=== PATIENT | male | born 1945 | race Caucasian/White ===

== ENCOUNTER → 2020-02-27 10:06 | Outpatient (BNVA) | payer OTHER, SELFPAY | PROVIDERS: PCP Internal Medicine; Visit Provider Hospitalist | DX: Z76.89 Persons encountering health services in other specified circumstances (principal) ==

== ENCOUNTER 2020-10-03 09:46 | Outpatient (REF) | payer OTHER, SELFPAY ==
--- NOTE | 2020-10-03 11:02 | PFT_ITS ---
INDICATION: COPD. SPIROMETRY: The FEV1 to FVC of 72%. He had an FEV1 of 3.18 L which is 93% predicted, an FVC of 4.42 L which is 95% predicted. No significant response to bronchodilators noted. Maximum voluntary ventilation 83% predicted. LUNG VOLUMES: Total lung capacity 94% predicted. DIFFUSION CAPACITY: DLCO 94% predicted. The flow volume loop appears to show a concavity during the expiratory limb suggesting an obstructive physiology. INTERPRETATION: There appears to be a mild obstructive ventilatory defect consistent with mild COPD. No significant response to bronchodilators noted. Normal maximum voluntary ventilation. Lung volumes and diffusion capacity within normal limits. Clinical correlation warranted. MD FERMÍN Ewing/MODFaby / [id number]
== END 2020-10-03 09:47 | disposition home or self-care (01) ==
LOC: HO.RESP 09:46
PROVIDERS: PCP Internal Medicine; Visit Provider Hospitalist
DX: J45.40 Moderate persistent asthma, uncomplicated (principal)
CPT/HCPCS: 94060; 94727; 94729

== ENCOUNTER → 2020-10-11 09:50 | Outpatient (BNVA) | payer OTHER, SELFPAY | PROVIDERS: PCP Internal Medicine; Visit Provider Hospitalist ==

== ENCOUNTER 2021-09-20 10:53 | Outpatient (REF) | payer OTHER, SELFPAY ==
--- NOTE | 2021-09-20 09:53 | PFT_ITS ---
Forced vital capacity 85%, FEV1 86%, FEV1/FVC ratio 73. NTV68-25 84% and MVV is 75%. Post bronchodilator therapy, there is a slight improvement in FVC and [id number]. Total lung capacity 88%. Residual volume is 102%. Diffusion capacity 87%. CONCLUSION: Normal pulmonary function test. However, his significant response to bronchodilator therapy indicates that the patient may have bronchospastic disorder involving smaller airways. For this, clinical correlation is recommended. Compared to the results of study on 10/03/2020, there is no significant change except for the fact that the response to bronchodilator therapy is more pronounced on this present study. Danita Gilbert MD MSLemuel/MODL / [id number]
== END 2021-09-20 10:54 | disposition home or self-care (01) ==
LOC: HO.RESP 10:53
PROVIDERS: PCP Internal Medicine; Visit Provider Hospitalist
DX: J45.40 Moderate persistent asthma, uncomplicated (principal)
CPT/HCPCS: 94060; 94727; 94729

== ENCOUNTER 2022-10-07 14:06 | Outpatient (AMB) | payer OTHER, SELFPAY ==
--- NOTE | 2022-10-07 14:29 | A.OFFVIS_ITS ---
Intake Vital Signs 10/07/22 14:31 Height 6 ft Weight 200 lb BMI 27.1 BP 130/78 Blood Pressure Location Lt brachial Position Sitting Pulse 70 Pulse Source Pulse Oximeter Pulse Oximetry (%) 96 Oxygen Delivery Method Room Air Intake Visit Reasons: COPD [employer] Required: No Allergies No Known Allergies Allergy (Verified 10/07/22 14:29) HPI HPI Comments History of Present Illness Details The patient is a 77 y/o gentleman known lifelong asthma. He has also has a history of nasal polyposis with multiple surgeries both here and [place]. He has been on multiple inhalers without any significant improvement. Baseline he does have some wheezing. However sometimes he has exacerbations at least 2 to 3 times a year where he has worsening respiratory symptoms for several months afterwards. Usually has to go on antibiotics and prednisone. Currently he does not have a nebulizer. He does have some wheezing on examination. Therefore, he did have a bronchodilator in a pre and post spirometry demonstrating some evidence response to bronchodilators, but, no obstruction at least on spirometry. The patient has been on allergy shots in the past. He had an for about 20 years without any significant improvement. He does have significant asthma and likely allergic phenotype. Will test his blood work at to assess his eosinophils and also his IgE levels among others. He may be a good candidate for biologic specially since he has failed respiratory therapy. In the meantime will start him on a nebulizer with budesonide and albuterol. Could consider using a long-acting beta agonist in the future. 09/27/2019 The patient is here for pulmonary follow-up visit. He continues to have significant wheezing from his severe persistent asthma. He also had difficulty breathing due to his nasal polyposis. We are to increase inhaled cortical steroids because of persistent wheezing. After adding budesonide and more nebulized treatments he has been able to exercise a little better. However still having significant wheezing on examination. He has also been on steroids. At this point we did do his blood work demonstrating significant allergies and also an elevated IgE level. He also has nasal polyposis and also eczema. He is failing outpatient therapy with respiratory medicines. He needs to be placed on biologics. We did talk about different options, but Dupixent would be the better option. I believe Dupixent will be able to treat the patient's nasal polyposis is eczema and significant allergic uncontrolled asthma. 02/27/2020 the patient is here for pulmonary follow-up visit. Overall he is doing significantly better. The Dupixent injections have been very helpful. His nasal polyposis and postnasal drip from improved and he can breathe better through his nose. Also his asthma has been much improved. He has not required his nebulized therapy. He has not required any prednisone. He does continue with his current maintenance therapy. We did again looked at his spirometry that he had back over the summer demonstrating no evidence of obstruction consistent with his reversible obstructive airway disease. Will plan to have him come back in the end of the summer with pulmonary function studies and a chest x-ray unless he has worsening respiratory symptom began evaluate at earlier time. 10/07/2022 the patient is here for a pulmonary follow-up visit. Overall the patient is doing significantly better. Feels like every day he is getting better. His breathing is a lot better. He continues on the Dupixent. Denies any allergic reactions to the Dupixent. Feels like the nasal polyposis and the eczema also have improved along with the asthma. The patient has not required any prednisone or any rescue therapy to treat his asthma. Denies any conjunctivitis or any local reaction to the Dupixent injection. At this point is very important for him to continue the Dupixent as it is helping his eczema, nasal polyps and also severe asthma. I am hopeful that well on the Dupixent his airways will continue healing to the point that they can hopefully normalized. He did undergo pulmonary function studies and we did review the results. it appears that he is no longer obstructed demonstrating already improvement in his overall respiratory capacity. He continues to be active on a regular basis. The goal will be to continue the biologic therapy since he has responded so well to the therapy. No plans for discontinuation of the Dupixent at this time. Follow-up in a year's time. [facility] Medical History (Updated 02/27/20 @ 12:45 by Esteban Rosado MD) Asthma Eczema Nasal polyps Social History (Updated 10/11/20 @ 10:06 by WHIT Alcantara) Patient Tobacco Use Status: Never used Tobacco Review of Systems Const Denies night sweats ENT Denies change in voice, Denies lip swelling, Denies mouth pain, Reports nasal congestion, Reports nasal discharge and Denies tongue swelling Card Denies chest pain Resp Reports cough GI Denies abdominal pain Musc Denies no additional complaints Neuro Denies Neuro-related abnormal movements Psych Denies no additional complaints James/Lymph Denies easy bleeding and Denies lymphadenopathy Aller/Immun Denies lip swelling and Denies tongue swelling Physical Exam Vital Signs: Last Vital Signs Pulse 70 10/07/22 14:31 BP 130/78 10/07/22 14:31 Pulse Ox 96 10/07/22 14:31 Oxygen Delivery Method Room Air 10/07/22 14:31 BMI result Body Mass Index 27.1 Const General: alert HEENT General nose exam: Abnormal external nose present and Nasal discharge present Eyes Pupils: Equal, round and reactive pupils present Neck Neck: Yes normal visual inspection, Yes full ROM and Yes no lymphadenopathy Chest Chest palpation & inspection: normal inspection of the chest Resp Auscultation: clear to auscultation bilaterally, no rhonchi and no wheezes Cardio Rate: regular rate Rhythm: regular rhythm Heart sounds: S1 normal heart sound present and S2 normal heart sound present GI Palpation (GI): Soft to palpation and nontender Auscultation: normal bowel sounds General: Yes no CVA tenderness Back/Spine/Pelvis Back: no CVA tenderness Skin General skin exam: rashes and/or lesions noted Neuro Cranial nerves: Yes Equal, round and reactive pupils present Assessment & Plan Assessment & Plan (1) Nasal polyps: Code(s): J33.9 - Nasal polyp, unspecified Plan: Continue Dupixent every 2 weeks (2) Asthma: Code(s): J45.909 - Unspecified asthma, uncomplicated Qualifiers: Asthma complication type: uncomplicated Asthma persistence: persistent Asthma severity: moderate Qualified Code(s): J45.40 - Moderate persistent asthma, uncomplicated Plan: continue respiratory therapy Continue Dupixent CXR and PFTs 09/2021 Plan continue Dupixent 300 mg q.2 weeks short-acting beta agonist as needed follow-up in 1 year or sooner if he develops any worsening symptoms Coding Level of Care Code Est Pt Level 4 (45788) Diagnoses Nasal polyps J33.9 Asthma J45.40 Asthma complication type: uncomplicated Asthma persistence: persistent Asthma severity: moderate Time Spent (min) 17
[2022-10-07 14:31] VITALS: BP 130/78; PULSE 70; O2SAT 96; BMI 27.1
== END 2022-10-07 14:46 | disposition home or self-care (01) ==
PROVIDERS: PCP Internal Medicine; Visit Provider Hospitalist
DX: J33.9 Nasal polyp, unspecified (principal); J45.40 Moderate persistent asthma, uncomplicated
CPT/HCPCS: 99214

== ENCOUNTER → 2022-10-07 14:06 | Outpatient (BNVA) | payer OTHER, SELFPAY | PROVIDERS: PCP Internal Medicine; Visit Provider Hospitalist ==

== ENCOUNTER 2024-04-18 13:15 | Outpatient (AMB) | payer OTHER, SELFPAY ==
[2024-04-18 13:22] VITALS: BP 138/74; PULSE 74; O2SAT 95; BMI 28.0
--- NOTE | 2024-04-18 13:22 | A.OFFVIS_ITS ---
Vital Signs 04/18/24 13:22 Height 6 ft Weight 206 lb 2.115 oz BMI 28.0 BP 138/74 Blood Pressure Location Rt brachial Position Sitting Pulse 74 Pulse Source Pulse Oximeter Pulse Oximetry (%) 95 Oxygen Delivery Method Room Air Intake Visit Reasons: COPD Allergies No Known Allergies Allergy (Verified 04/18/24 13:25) HPI Comments Details: The patient is a 78 y/o gentleman known lifelong asthma. He has also has a history of nasal polyposis with multiple surgeries both here and [place]. He has been on multiple inhalers without any significant improvement. Baseline he does have some wheezing. However sometimes he has exacerbations at least 2 to 3 times a year where he has worsening respiratory symptoms for several months afterwards. Usually has to go on antibiotics and prednisone. Currently he does not have a nebulizer. He does have some wheezing on examination. Therefore, he did have a bronchodilator in a pre and post spirometry demonstrating some evidence response to bronchodilators, but, no obstruction at least on spirometry. The patient has been on allergy shots in the past. He had an for about 20 years without any significant improvement. He does have significant asthma and likely allergic phenotype. Will test his blood work at to assess his eosinophils and also his IgE levels among others. He may be a good candidate for biologic specially since he has failed respiratory therapy. In the meantime will start him on a nebulizer with budesonide and albuterol. Could consider using a long-acting beta agonist in the future. 10/07/2022 the patient is here for a pulmonary follow-up visit. Overall the patient is doing significantly better. Feels like every day he is getting better. His breathing is a lot better. He continues on the Dupixent. Denies any allergic reactions to the Dupixent. Feels like the nasal polyposis and the eczema also have improved along with the asthma. The patient has not required any prednisone or any rescue therapy to treat his asthma. Denies any conjunctivitis or any local reaction to the Dupixent injection. At this point is very important for him to continue the Dupixent as it is helping his eczema, nasal polyps and also severe asthma. I am hopeful that well on the Dupixent his airways will continue healing to the point that they can hopefully normalized. He did undergo pulmonary function studies and we did review the results. it appears that he is no longer obstructed demonstrating already improvement in his overall respiratory capacity. He continues to be active on a regular basis. The goal will be to continue the biologic therapy since he has responded so well to the therapy. No plans for discontinuation of the Dupixent at this time. Follow-up in a year's time. 04/18/2024 the patient is here for a pulmonary follow-up visit. Overall he is doing well. He continues Dupixent injections every 2 weeks. He has had significant improvement in his quality of life since he has been under Dupixent. He has nasal polyps have improved and also his eczema in his asthma has improved. He still has a rescue inhaler. The patient has not required any prednisone which is reassuring. Will plan to continue Dupixent for now. Respiratory exam he does have some scattered wheezing. Therefore have him get a chest x-ray. The patient is otherwise doing well will follow-up in a year's time. If he develops any worsening issues he will call for an earlier assessment. [facility] Medical History (Updated 02/27/20 @ 12:45 by Esteban Rosado MD) Eczema Nasal polyps Asthma Social History Patient Tobacco Use Status: Never used Tobacco Review of Systems Const Denies night sweats ENT Denies change in voice, Denies lip swelling, Denies mouth pain, Reports nasal congestion, Reports nasal discharge and Denies tongue swelling Card Denies chest pain Resp Reports cough GI Denies abdominal pain Musc Denies no additional complaints Skin/Breast Denies rash Neuro Denies Neuro-related abnormal movements Psych Denies no additional complaints James/Lymph Denies easy bleeding and Denies lymphadenopathy Aller/Immun Denies lip swelling and Denies tongue swelling Physical Exam Vital Signs: Last Vital Signs Pulse 74 04/18/24 13:22 BP 138/74 04/18/24 13:22 Pulse Ox 95 04/18/24 13:22 Oxygen Delivery Method Room Air 04/18/24 13:22 BMI result Body Mass Index 28.0 Const General: alert HEENT General nose exam: Abnormal external nose present and Nasal discharge present Eyes Pupils: Equal, round and reactive pupils present Neck Neck: Yes normal visual inspection, Yes full ROM and Yes no lymphadenopathy Chest Chest palpation & inspection: normal inspection of the chest Resp Effort & Inspection: normal respiratory effort Auscultation: clear to auscultation bilaterally, no rhonchi and wheezes scattered wheezes Cardio Rate: regular rate Rhythm: regular rhythm Heart sounds: S1 normal heart sound present and S2 normal heart sound present GI Palpation (GI): Soft to palpation and nontender Auscultation: normal bowel sounds General: Yes no CVA tenderness Back/Spine/Pelvis Back: no CVA tenderness Skin General skin exam: rashes and/or lesions noted Neuro Cranial nerves: Yes Equal, round and reactive pupils present Assessment & Plan Assessment & Plan (1) Nasal polyps: Code(s): J33.9 - Nasal polyp, unspecified Category: Medical Plan: Continue Dupixent every 2 weeks (2) Asthma: Code(s): J45.909 - Unspecified asthma, uncomplicated Category: Medical Qualifiers: Asthma complication type: uncomplicated Asthma persistence: persistent Asthma severity: moderate Qualified Code(s): J45.40 - Moderate persistent asthma, uncomplicated Plan: continue respiratory therapy Continue Dupixent CXR and PFTs 09/2021 Plan continue Dupixent 300 mg q.2 weeks short-acting beta agonist as needed CXR follow-up in 1 year or sooner if he develops any worsening symptoms Orders: Orders XR chest 2V Today J45.40 - Moderate persistent asthma, uncomplicated Coding Level of Care Code Est Pt Level 4 (63778) Diagnoses Nasal polyps J33.9 Moderate persistent asthma without complication J45.40 Asthma complication type: uncomplicated Asthma persistence: persistent Asthma severity: moderate Time Spent (min) 16
== END 2024-04-18 13:54 | disposition home or self-care (01) ==
PROVIDERS: PCP Internal Medicine; Visit Provider Hospitalist
DX: J33.9 Nasal polyp, unspecified (principal); J45.40 Moderate persistent asthma, uncomplicated
CPT/HCPCS: 99214

== ENCOUNTER 2024-04-18 13:15 | Outpatient (REF) | payer OTHER, SELFPAY ==
--- NOTE | ~2024-04-18 | XR_ITS ---
.EXAMINATION: XR CHEST CLINICAL INFORMATION: J45.40 - Moderate persistent asthma, uncomplicated COMPARISON: None available. TECHNIQUE: 2 views of the chest were obtained. FINDINGS: Pulmonary reticular pattern. No consolidation, pleural effusion or pneumothorax. No hyperinflation. Cardiomediastinal silhouette size is normal. Multilevel thoracic spondylosis. XR/XR chest 2V IMPRESSION: No acute airspace disease. Electronically signed by: Earl Cole MD 04/18/2024 02:10 PM [id number]
== END 2024-04-18 13:16 | disposition home or self-care (01) ==
LOC: HO.XRAY 13:15
PROVIDERS: PCP Internal Medicine; Visit Provider Hospitalist
DX: J45.40 Moderate persistent asthma, uncomplicated (principal); J33.9 Nasal polyp, unspecified; Z79.620 Long term (current) use of immunosuppressive biologic
CPT/HCPCS: 71046

== ENCOUNTER → 2024-04-18 13:51 | Outpatient (BNV) | payer OTHER, SELFPAY | PROVIDERS: PCP Internal Medicine; Visit Provider Radiology Diagnostic Radiology | DX: J45.40 Moderate persistent asthma, uncomplicated (principal) | CPT/HCPCS: 71046 ==